=== PATIENT | male | born 1945 | race Hispanic/Latino ===

== ENCOUNTER 2024-01-27 04:26 | Emergency (ER) | payer OTHER ==
[2024-01-27] MEDS ORDERED: Ondansetron ODT 4 MG TAB ONE (17:34)
[2024-01-27] MEDS ORDERED: HYDROcodone/Acetaminophen 10/325 mg Tablet ONE (17:34)
== END 2024-01-27 22:26 ==
LOC: NAV ERS 17:16
DX: S42.255A Nondisplaced fracture of greater tuberosity of left humerus, initial encounter for closed fracture (principal); I10 Essential (primary) hypertension; E11.51 Type 2 diabetes mellitus with diabetic peripheral angiopathy without gangrene; K21.9 Gastro-esophageal reflux disease without esophagitis; W18.11XA Fall from or off toilet without subsequent striking against object, initial encounter; Z79.4 Long term (current) use of insulin; Z79.84 Long term (current) use of oral hypoglycemic drugs; Z79.899 Other long term (current) drug therapy
CPT/HCPCS: 70450; Q0162